=== PATIENT | male | born 1930 | race Caucasian/White ===

== ENCOUNTER → 2016-08-16 | Outpatient (CLI) | payer OTHER ==
[~2016-08-16] MED LIST: ASPEC81 PO; ATOR10TA88 PO; CHOL100010 PO; CLTP PO; FIBER PO; GLC500 PO; HYDR-5688 PO; LISI5TAB3 PO; MAGNESIUM 250MG PO; MELO7.5T7 PO; MULT-506 PO; TERA5CAP PO; ZNTT/150 PO
[2016-08-16 09:57] LABS: AST/SGOT 14 U/L (15-37); BLOOD UREA NITROGEN 24 mg/dl (7-18); BUN/CREATININE RATIO 18.8 (10-20); CALCIUM 8.7 mg/dl (8.5-10.1); CARBON DIOXIDE 25 mmol/L (21-32); CHLORIDE 108 mmol/L (98-107); GLUCOSE 173 mg/dl (70-99); POTASSIUM 4.6 mmol/L (3.5-5.1); SODIUM 141 mmol/L (136-145)
[2016-08-16 10:12] LABS: ALT/SGPT 25 U/L (12-78); CHOLESTEROL 109 mg/dl (0-200); CHOLESTEROL/HDL RATIO 1.8; HDL CHOLESTEROL 59 mg/dl; LDL CHOLESTEROL CALCULATED 35 mg/dl; TRIGLYCERIDES 76 mg/dl (0-150); VERY LOW DENSITY LIPOPROT CALC 15 mg/dl
[2016-08-16 10:15] LABS: ESTIMATED AVERAGE GLUCOSE 154 mg/dl; HA1C FLAG Normal (Normal)
== END | disposition home or self-care (01) ==
LOC: C.LAB1850 07:45
PROVIDERS: ATTEND Internal Medicine
DX: E78.5 Hyperlipidemia, unspecified (principal); E11.9 Type 2 diabetes mellitus without complications

== ENCOUNTER → 2016-12-18 | Outpatient (CLI) | payer OTHER ==
[~2016-12-18] MED LIST changes: +ATOR10TA82 PO; -ATOR10TA88 PO
[2016-12-18 09:39] LABS: BLOOD UREA NITROGEN 19 mg/dl (7-18); GLUCOSE 143 mg/dl (70-99)
[2016-12-18 09:40] LABS: ALT/SGPT 32 U/L (12-78); AST/SGOT 17 U/L (15-37); BUN/CREATININE RATIO 14.4 (10-20); CARBON DIOXIDE 25 mmol/L (21-32); CHLORIDE 109 mmol/L (98-107); CHOLESTEROL 103 mg/dl (0-200); POTASSIUM 4.4 mmol/L (3.5-5.1); SODIUM 142 mmol/L (136-145); TRIGLYCERIDES 82 mg/dl (0-150); VERY LOW DENSITY LIPOPROT CALC 16 mg/dl
[2016-12-18 09:43] LABS: HDL CHOLESTEROL 51 mg/dl; LDL CHOLESTEROL CALCULATED 36 mg/dl
[2016-12-18 10:07] LABS: RATIO 16.1 mcg/mg (0-30.0)
== END | disposition home or self-care (01) ==
LOC: C.LAB1850 07:36
PROVIDERS: ATTEND Internal Medicine
DX: E78.5 Hyperlipidemia, unspecified (principal); I10 Essential (primary) hypertension; E11.9 Type 2 diabetes mellitus without complications

== ENCOUNTER → 2017-03-20 | Outpatient (CLI) | payer OTHER ==
[~2017-03-20] MED LIST changes: -ATOR10TA82 PO; +ATOR10TA88 PO
[2017-03-20 09:39] LABS: HEMATOCRIT 35.6 % (42-52); MEAN CELL VOLUME 100.6 fL (80-100); MEAN CORPUSCULAR HEMOGLOBIN 33.9 pg (25-34); MEAN CORPUSCULAR HGB CONC 33.7 g/dl (32-36); MEAN PLATELET VOLUME 9.2 fL (7.4-10.4); PLATELET COUNT 204 K/uL (130-400); RED BLOOD COUNT 3.54 M/uL (4.7-6.1); WHITE BLOOD COUNT 5.87 K/uL (4.8-10.8)
[2017-03-20 10:12] LABS: ESTIMATED AVERAGE GLUCOSE 151 mg/dl; HA1C FLAG Normal (Normal)
[2017-03-20 12:22] LABS: BLOOD UREA NITROGEN 23 mg/dl (7-18); BUN/CREATININE RATIO 17.8 (10-20); CALCIUM 8.9 mg/dl (8.5-10.1); CARBON DIOXIDE 27 mmol/L (21-32); CHLORIDE 111 mmol/L (98-107); GLUCOSE 145 mg/dl (70-99); POTASSIUM 4.3 mmol/L (3.5-5.1); SODIUM 143 mmol/L (136-145)
== END | disposition home or self-care (01) ==
LOC: C.LAB1850 07:49
PROVIDERS: ATTEND Internal Medicine
DX: E11.9 Type 2 diabetes mellitus without complications (principal); D64.9 Anemia, unspecified

== ENCOUNTER → 2017-07-16 | Outpatient (CLI) | payer OTHER ==
[~2017-07-16] MED LIST changes: +ATOR10TA82 PO; -ATOR10TA88 PO; +RANI150T85 PO; -ZNTT/150 PO
[2017-07-16 10:22] LABS: ALT/SGPT 25 U/L (12-78); BLOOD UREA NITROGEN 21 mg/dl (7-18); CALCIUM 8.8 mg/dl (8.5-10.1); CARBON DIOXIDE 26 mmol/L (21-32); CREATININE 1.24 mg/dl (0.60-1.40); GLUCOSE 158 mg/dl (70-99); POTASSIUM 4.6 mmol/L (3.5-5.1); SODIUM 140 mmol/L (136-145)
[2017-07-16 10:25] LABS: AST/SGOT 11 U/L (15-37); CHOLESTEROL 97 mg/dl (0-200); LDL CHOLESTEROL CALCULATED 19 mg/dl
--- NOTE | 2017-07-23 09:07 | CODING QUERY MEDICAL NECESSITY ---
CQSUPPORTING DIAGNOSIS NEEDED A supporting diagnosis is required for the test/procedure performed on this patient in order for us to be reimbursed by the patient's insurance. Please provide a supporting diagnosis for the following test/procedure listed below next to the test name along with your signature. *If there is no additional diagnosis for this patient that would support the following test/procedure please document that below next to the test/procedure. Test(s)/Procedure(s) that require a supporting diagnosis: DOS 07/16/17 VITAMIN B12 TEST Provider Signature: Date: Thank you Dian [facility] Once completed, please kindly fax back to [phone] For questions please call [phone]
== END | disposition home or self-care (01) ==
LOC: C.LAB1850 07:54
PROVIDERS: ATTEND Internal Medicine
DX: E78.5 Hyperlipidemia, unspecified (principal); I10 Essential (primary) hypertension; E11.9 Type 2 diabetes mellitus without complications; D64.9 Anemia, unspecified

== ENCOUNTER → 2017-10-15 | Outpatient (CLI) | payer OTHER ==
[2017-10-15 09:36] LABS: BASO % 0.4 %; BASO ABS # 0.02 K/uL (0-0.2); EOS % 6.5 %; EOS ABS # 0.34 K/uL (0-0.5); HEMATOCRIT 36.7 % (42-52); HEMOGLOBIN 12.4 g/dL (14.0-18.0); IG# 0.01 K/uL (0.00-0.02); LYMPH % 29.8 %; LYMPH ABS # 1.57 K/uL (1.2-3.4); MEAN CELL VOLUME 99.7 fL (80-100); MEAN CORPUSCULAR HEMOGLOBIN 33.7 pg (25-34); MEAN CORPUSCULAR HGB CONC 33.8 g/dl (32-36); MEAN PLATELET VOLUME 9.3 fL (7.4-10.4); MONO % 11.6 %; MONO ABS # 0.61 K/uL (0.11-0.59); NEUT % 51.5 %; NEUT ABS # 2.72 K/uL (1.4-6.5); PLATELET COUNT 209 K/uL (130-400); RED CELL DISTRIBUTION WIDTH CV 12.3 % (11.5-14.5); RED CELL DISTRIBUTION WIDTH SD 44.7 fL (36.4-46.3); WHITE BLOOD COUNT 5.27 K/uL (4.8-10.8)
[2017-10-15 09:49] LABS: BLOOD UREA NITROGEN 26 mg/dl (7-18); CALCIUM 8.9 mg/dl (8.5-10.1); CARBON DIOXIDE 25 mmol/L (21-32); CREATININE 1.24 mg/dl (0.60-1.40); GLUCOSE 160 mg/dl (70-99); POTASSIUM 4.4 mmol/L (3.5-5.1); SODIUM 141 mmol/L (136-145)
[2017-10-15 09:52] LABS: HEMOGLOBIN A1C 7.1 % (4.5-5.6)
[2017-10-15 10:27] LABS: CREATININE RANDOM URINE 84.7 mg/dl
== END | disposition home or self-care (01) ==
LOC: C.LAB1850 08:01
PROVIDERS: ATTEND Internal Medicine
DX: E11.9 Type 2 diabetes mellitus without complications (principal); D64.9 Anemia, unspecified; E78.5 Hyperlipidemia, unspecified; I10 Essential (primary) hypertension

== ENCOUNTER → 2018-02-24 | Outpatient (CLI) | payer OTHER ==
--- NOTE | 2018-02-24 10:47 | DIAGNOSTIC IMAGING REPORT ---
L FOOT MIN 3 VIEWS ROUTINE CLINICAL HISTORY: 88 years-old Male presenting with M19.90 [id number]. TECHNIQUE: Frontal, oblique and lateral views of the left foot were obtained. COMPARISON: None. FINDINGS: Cystic change evident at the first metatarsal head, where there is also mild joint space loss and osteophytosis. Degenerative changes of distal interphalangeal joints of the second and third toes also suggested. Extensive cystic change in the navicular and medial and middle cuneiform bones. Degenerative related ossicle or heterotopic ossification noted along the dorsum of the ventricular. Prominent enthesophyte at the origin of the plantar fascia. No acute fracture or malalignment. Atherosclerosis. IMPRESSION: 1. Findings characteristic of multifocal osteophytosis affecting the midfoot as well as the first MTP joint and the DIP joints of the second and third toes. 2. No acute osseous injury. Electronically signed by: Bharath Ramirez M.D. 02/24/2018 10:46 AM Dictated Date/Time: 02/24/2018 10:43 AM
== END | disposition home or self-care (01) ==
LOC: C.RAD1850 10:26
PROVIDERS: ATTEND Internal Medicine
DX: M25.775 Osteophyte, left foot (principal)